=== PATIENT | male | born 1975 | race Caucasian/White ===

== ENCOUNTER → 2021-01-06 | Outpatient (CLI) | payer OTHER | LOC: HEART 5 11:20 | DX: R06.02 Shortness of breath (principal) | CPT/HCPCS: 94010 ==

== ENCOUNTER → 2021-03-10 | Outpatient (CLI) | payer OTHER | LOC: HEART CORB 02-26 12:00 | DX: R06.00 Dyspnea, unspecified (principal); I10 Essential (primary) hypertension ==